=== PATIENT | male | born 1985 ===

== ENCOUNTER 2025-02-13 21:34 | Emergency (ER) | payer MEDICAID ==
[~2025-02-13] VITALS: Ht 170.2 cm; Wt 79.0 kg
[2025-02-13 22:04] VITALS: O2SAT 98
[2025-02-13] MEDS ORDERED: IBUP-2030 MT (23:11)
[2025-02-13] MEDS ORDERED: CLIN-194 MT (23:11)
[2025-02-14] MEDS: DEXAMETHASONE 4MG TABLET PO ONE (00:03)
[2025-02-14] MEDS: IBUPROFEN 800MG TABLET PO ONE (00:04)
[2025-02-14 00:05] VITALS: BP 136/88; PULSE 88; RESP 15; TEMP 36.8; O2SAT 98
[2025-02-14] MEDS: CLINDAMYCIN PHOSPHATE 600MG/4ML VIAL IM ONE (00:09)
== END 2025-02-14 00:14 | disposition home or self-care (01) ==
LOC: ER 21:34
DX: L02.214 Cutaneous abscess of groin (principal)
CPT/HCPCS: 99283; 96372; J8540; J3490